=== PATIENT | male | born 1965 | race Two or more races ===

== ENCOUNTER 2017-03-25 19:39 | Emergency (ER) | payer SELFPAY ==
[~2017-03-25] VITALS: Ht 170.2 cm; Wt 117.9 kg
[2017-03-25 19:47] VITALS: BP 121/75
--- NOTE | 2017-03-25 20:29 | NUR ---
COMPLEX CASE MANAGER Marsii at bedside, cotton bud was removed. Patient was able to qamar procedure well.
== END 2017-03-25 20:33 | disposition home or self-care (01) ==
LOC: ER 19:44
DX: T16.1XXA Foreign body in right ear, initial encounter (principal); X58.XXXA Exposure to other specified factors, initial encounter; Y93.89 Activity, other specified; Y92.89 Other specified places as the place of occurrence of the external cause; Y99.8 Other external cause status
CPT/HCPCS: 69200; 99284; A4606; Z7610

== ENCOUNTER 2021-10-04 16:34 | Emergency (ER) | payer OTHER ==
[~2021-10-04] VITALS: Ht 172.7 cm; Wt 99.8 kg
--- NOTE | 2021-10-04 16:35 | NUR ---
BIBS THIS 56YO/MALE PATIENT WITH CC OF RIGHT LOWER QUADRANT BURNING/ PAIN RADIATING TO THE BACK. PATIENT CLAIMED THAT PAIN IS 6/10 AND THE BURNING SENSATION IS DEEP IN RIGHT LOWER QUADRANT. HE WAS HAVING THIS PAIN FOR 10DAYS. S/P RIGHT KIDNEY REMOVED YEARS AGO. PATIENT IS ALERT, ORIENTED X4. VITALS CHECKED.
--- NOTE | 2021-10-04 16:48 | NUR ---
URINE SPECIMEN SENT TO LAB
--- NOTE | 2021-10-04 16:51 | NUR ---
SEEN BY PA AT BEDSIDE
[2021-10-04] MEDS ORDERED: IV NS 0.9% 1,000 ML BAG IV ONE (17:00)
[2021-10-04] MEDS ORDERED: KETOROLAC TROMETHAMINE INJ 30 MG/ML VIAL IV ONE (17:00)
[2021-10-04] MEDS ORDERED: KETOROLAC TROMETHAMINE 15 MG/ML VIAL ONE (17:23)
--- NOTE | 2021-10-04 17:30 | NUR ---
IV CANNULA G20 INSERTED ON LEFT AC. BLOOD DRAWN AND SENT TO LAB
[2021-10-04 17:41] LABS: BASOPHILS # (AUTO) 0.1 K/uL (0.0-0.2); BASOPHILS % (AUTO) 1.1 % (0.0-2.0); EOSINOPHILS % (AUTO) 3.4 % (0.0-6.0); HEMATOCRIT 43 % (39-51); HEMOGLOBIN 14.3 g/dL (13.5-17.5); LYMPHOCYTES % (AUTO) 27.9 % (20.0-44.0); MEAN CORPUSCULAR HGB CONC 33 g/dl (31.0-36.0); MEAN CORPUSCULAR VOLUME 87 fL (80-96); MONOCYTES # (AUTO) 0.6 K/uL (0.1-1.30); MONOCYTES % (AUTO) 7.8 % (2.0-12.0); NEUTROPHILS # (AUTO) 4.4 K/uL (1.8-8.9); NEUTROPHILS % (AUTO) 59.8 % (43.0-81.0); PLATELET COUNT (AUTO) 302 K/uL (150-450); RED BLOOD CELL COUNT(AUTO) 4.92 MIL/uL (4.5-6.0); WHITE BLOOD COUNT (AUTO) 7.3 K/uL (4.3-11.0)
[2021-10-04 17:50] LABS: BILIRUBIN,URINE NEGATIVE (NEGATIVE); COLOR,URINE YELLOW (YELLOW); LEUKOCYTE ESTERASE ,URINE NEGATIVE (NEGATIVE); NITRITE, URINE NEGATIVE (NEGATIVE); PH,URINE 5.5 (5.0-8.0); PROTEIN,URINE NEGATIVE (NEGATIVE); UGLUCOSE 100 MG/DL mg/dL (NEGATIVE); UROBILINOGEN,URINE 0.2 EU/dL (0.2)
[2021-10-04 18:03] LABS: RBC,URINE 0-2 /HPF (0-2)
[2021-10-04 18:04] LABS: BACTERIA,URINE Few /HPF (None Seen); SQUAMOUS EPITHELIAL CELL,UR Few /HPF (None Seen)
[2021-10-04 18:44] LABS: ALBUMIN 3.6 g/dL (3.4-5.0); BILIRUBIN,DIRECT 0.1 mg/dL (0.0-0.2); BILIRUBIN,TOTAL 0.3 mg/dL (0.2-1.0); CREATININE 1.1 mg/dL (0.6-1.3); TOTAL PROTEIN, SERUM 7.6 g/dL (6.4-8.2)
--- NOTE | 2021-10-04 19:15 | NUR ---
IV CANNULA REMOVED
--- NOTE | 2021-10-04 19:24 | NUR ---
DPatient discharged to home in stable condition. Written and verbal after care instructions given. Patient verbalizes understanding of instruction.
[2021-10-04 19:25] VITALS: BP 116/73
== END 2021-10-04 19:25 | disposition home or self-care (01) ==
LOC: ER 16:34
DX: R10.9 Unspecified abdominal pain (principal); Z85.528 Personal history of other malignant neoplasm of kidney
CPT/HCPCS: 36415; 74176; 80048; 80076; 81001; 83690; 85025; 96361; 96374; 99284; J1885; J7030